=== PATIENT | male | born 1975 | race Caucasian/White ===

== ENCOUNTER 2021-04-02 07:17 | Emergency (ER) | payer OTHER ==
--- NOTE | 2021-04-02 08:04 | EDM.PDOC ---
ED HPI GENERAL MEDICAL PROBLEM - General Chief Complaint: ENT Problem Stated Complaint: THROAT HURTS VOICE WEAK Time Seen by Provider: 04/02/21 07:21 - History of Present Illness INITIAL COMMENTS - FREE TEXT/NARRATIVE: History of present illness: [] The patient started being sick 5 days ago with a scratchy throat. He got to be a sore throat the next day and then over the next few days he has developed hoarse voice pain with swallowing thick mucus in the back of his throat. Patient's symptoms have been constant and gradually crescendo. Talking and swallowing makes the pain worse. Patient's energy level somewhat diminished. Patient has young children. He went to [place] 4 days ago with a sore throat and was not tested for strep because he said he has been tested multiple times and always negative. He was not started on any antibiotics. He says Chloraseptic and warm salt water gargles do not help the pain in the back of his throat. The mucus and pain in the back of the throat causing him to have a persistent cough is very irritating keeps him from sleeping. He has no trismus. Review of systems: As per history of present illness and below otherwise all systems reviewed and negative. Past medical history: As per history of present illness and as reviewed below otherwise noncontributory. Surgical history: As per history of present illness and as reviewed below otherwise noncontributory. Social history: No reported history of drug or alcohol abuse. Family history: As per history of present illness and as reviewed below otherwise noncontributory. Physical exam: Constitutional - well developed, well-nourished and in no acute distress HEENT -pharynx is somewhat hyperemic. There is no actual discharge. Patient has no trismus. He handles his secretions well. Voice is slightly hoarse. There is no tender adenopathy in the neck. Normocephalic, no evidence of trauma - external nose and mouth normal - no mass in neck and no JVD - mucosae moist EYES - full EOM, PERRL, no icterus - no evidence of inflammation, injection, or drainage Respiratory - no respiratory distress, equal bilateral expansion, lungs clear to auscultation and no abnormal lung sounds Cardiovascular - Regular Rhythm with S1 and S2 appreciated and no murmur, gallop or rub. GI - abdomen soft without distension or organomegaly - normal bowel sounds - no guard or rebound Musculoskeletal no gross deformity of long bones or joints - no tenderness, swelling or edema Neurologic - Alert and oriented times four - CN II-XII grossly intact - motor sensory and coordination symmetrically normal Psychiatric - appropriate mood and affect with normal thought content Hematologic - No petechiae or purpura - mucosa appropriate color and sclera not pale - normal nail bed color and refill Integument - no rash or evidence of trauma - normal turgor Diagnostics: [] Therapeutics: [] Impression: [] Plan: [] Definitive disposition and diagnosis as appropriate pending reevaluation and review of above. Throat Pain Score (Numeric/FACES): 9 - Related Data Allergies Allergy/AdvReac Type Severity Reaction Status Date / Time No Known Allergies Allergy Verified 04/02/21 07:37 Home Meds: Home Meds Adalimumab [Humira(Cf) Pen] 04/02/21 [History] Amoxicillin 500 mg PO TID 10 Days #30 capsule 04/02/21 [Rx] Codeine Phosphate/Guaifenesin [Guaifen-Codeine 100-10 mg/5 ml] 5 - 10 ml PO QID PRN #120 liquid 04/02/21 [Rx] Rosuvastatin [Crestor] 5 mg PO DAILY 04/02/21 [History] Sertraline [Zoloft] 50 mg PO DAILY 04/02/21 [History] Sertraline [Zoloft] 100 mg PO DAILY 04/02/21 [History] Past Medical History Gastrointestinal History: Reports: Other (See Below) Other Gastrointestinal History: crohn's disease - Infectious Disease History Infectious Disease History: Reports: Chicken Pox - Past Surgical History GI Surgical History: Reports: Appendectomy Social & Family History - Family History Family Medical History: No Pertinent Family History ED ROS GENERAL - Review of Systems Review Of Systems: Comprehensive ROS is negative, except as noted in HPI. ED EXAM, GENERAL - Physical Exam Exam: See Below Free Text/Narrative:: My physical exam is in the HPI Course - Vital Signs Last Recorded V/S: Last Vital Signs Temp 36.1 C 04/02/21 07:38 Pulse 88 04/02/21 07:38 Resp 16 04/02/21 07:38 BP 164/81 H 04/02/21 07:38 Pulse Ox 96 04/02/21 07:38 - Orders/Labs/Meds Labs: Laboratory Tests 04/02/21 Range/Units 07:50 Group A Strep (PCR) NOT DETECTED (NOT DETECT) Departure - Departure Time of Disposition: 08:23 Disposition: Home, Self-Care 01 Condition: Good Clinical Impression: Otitis media, Pharyngitis - Discharge Information Prescriptions: Amoxicillin 500 mg PO TID 10 Days #30 capsule Codeine Phosphate/Guaifenesin [Guaifen-Codeine 100-10 mg/5 ml] 5 - 10 ml PO QID PRN #120 liquid PRN Reason: Cough Instructions: Otitis Media, Adult, [id number], Pharyngitis, [id number] Referrals: PCP,Not In Area [Primary Care Provider] - Forms: ED Department Discharge Additional Instructions: Warm salt water gargles or chicken soup with noodles will help. Cepastat or Cepacol can anesthetize your throat. [facility] [address] [place] [address] [place] [address] The following information is given to patients seen in the emergency department who are being discharged to home. This information is to outline your options for follow-up care. We provide all patients seen in our emergency department with a follow-up referral. The need for follow-up, as well as the timing and circumstances, are variable depending upon the specifics of your emergency department visit. If you don't have a primary care physician on staff, we will provide you with a referral. We always advise you to contact your personal physician following an emergency department visit to inform them of the circumstance of the visit and for follow-up with them and/or the need for any referrals to a consulting specialist. The emergency department will also refer you to a specialist when appropriate. This referral assures that you have the opportunity for follow-up care with a specialist. All of these measure are taken in an effort to provide you with optimal care, which includes your follow-up. Under all circumstances we always encourage you to contact your private physician who remains a resource for coordinating your care. When calling for follow-up care, please make the office aware that this follow-up is from your recent emergency room visit. If for any reason you are refused follow-up, please contact the [facility] Emergency Department at and asked to speak to the emergency department charge nurse. Sepsis Event Note (ED) - Evaluation Sepsis Screening Result: No Definite Risk - Focused Exam Vital Signs: Vital Signs Temp Pulse Resp BP Pulse Ox 04/02/21 07:38 36.1 C 88 16 164/81 H 96
== END 2021-04-02 08:37 | disposition home or self-care (01) ==
LOC: MW.ED 07:17
DX: J02.9 Acute pharyngitis, unspecified (principal); H66.90 Otitis media, unspecified, unspecified ear
CPT/HCPCS: 87651-QW; 99283

== ENCOUNTER 2022-06-18 04:08 | Emergency (ER) | payer OTHER ==
[2022-06-18 05:10] LABS: CARBON DIOXIDE,CO2 26.3 mmol/L (21.0-32.0); POTASSIUM,K 3.8 mmol/L (3.5-5.1)
== END 2022-06-18 06:00 | disposition home or self-care (01) ==
LOC: MW.ED 04:08
DX: R00.2 Palpitations (principal)
CPT/HCPCS: 36415; 80053; 83735; 84439; 84443; 84484; 85025; 93010; 99283; 99285

== ENCOUNTER 2023-02-07 12:24 | Emergency (ER) | payer SELFPAY | END 2023-02-07 13:41 | disposition left against medical advice (07) | LOC: MW.ED 12:24 | DX: Z53.21 Procedure and treatment not carried out due to patient leaving prior to being seen by health care provider (principal) ==

== ENCOUNTER 2023-10-05 17:41 | Emergency (ER) | payer OTHER ==
[2023-10-05] MEDS: Diphtheria,Pertussis(Acell),Tetanus Vaccine 0.5 ML Syringe IM ONE (19:05)
[2023-10-05] MEDS: Lidocaine 1% 5 ML VIAL INJECT ONE ×2 (19:05→20:03)
[2023-10-05] MEDS: ceFAZolin 1 GM Vial IM ONE (20:03)
== END 2023-10-05 20:25 | disposition home or self-care (01) ==
LOC: MW.ED 17:41
DX: S61.215A Laceration without foreign body of left ring finger without damage to nail, initial encounter (principal); E78.00 Pure hypercholesterolemia, unspecified; Z90.49 Acquired absence of other specified parts of digestive tract; Z79.899 Other long term (current) drug therapy; W20.8XXA Other cause of strike by thrown, projected or falling object, initial encounter
CPT/HCPCS: 12001; 73130; 73140; 90471; 90715; 96372; 99283; J0690; J3490

== ENCOUNTER 2024-07-02 09:09 | Emergency (ER) | payer OTHER ==
[2024-07-02] MEDS ORDERED: Sodium Chloride 0.9% 2.5 ML Syringe FLUSH PRN (09:51)
[2024-07-02] MEDS ORDERED: Sodium Chloride 0.9% 10 ML Syringe FLUSH PRN (09:51)
[2024-07-02] MEDS: Lactated Ringers 1,000 ML IV ONE ×2 (10:03)
[2024-07-02] MEDS: Ondansetron 4 MG/2 ML SDV IVPUSH ONE (10:03)
[2024-07-02 10:17] LABS: BASOPHILS ABSOLUTE AUTO 0.04 K/uL (0.00-0.20); BASOPHILS PERCENT AUTO 0.3 % (0.0-1.0); EOSINOPHILS ABSOLUTE AUTO 0.02 K/uL (0.00-0.45); EOSINOPHILS PERCENT AUTO 0.2 % (0.0-6.0); HEMATOCRIT 45.1 % (42.0-52.0); HEMOGLOBIN 15.7 g/dL (14.0-18.0); IMMATURE GRAN ABSOLUTE AUTO 0.04 K/uL (0.00-0.05); IMMATURE GRAN PERCENT AUTO 0.3 % (0.0-0.4); LYMPHOCYTES ABSOLUTE AUTO 2.15 K/uL (1.00-4.80); LYMPHOCYTES PERCENT AUTO 16.7 % (24.0-44.0); MEAN CORPUSCULAR HEMOGLOBIN 28.2 pg (28.0-32.0); MEAN CORPUSCULAR HGB CONC 34.8 g/dL (32.0-36.0); MEAN CORPUSCULAR VOLUME 81.1 fL (83.0-99.0); MEAN PLATELET VOLUME 9.2 fL (9.4-12.4); MONOCYTES ABSOLUTE AUTO 1.35 K/uL (0.00-0.80); MONOCYTES PERCENT AUTO 10.5 % (0.0-8.0); NEUTROPHILS ABSOLUTE AUTO 9.26 K/uL (1.80-7.70); PLATELET COUNT,PLT 169 K/uL (150-400); RED BLOOD CELL COUNT 5.56 M/uL (4.52-5.90); WHITE BLOOD CELL COUNT,WBC 12.86 K/uL (3.9-11.3)
[2024-07-02] MEDS: Acetaminophen 325 MG Tab PO ONE (10:26)
[2024-07-02 10:43] LABS: ACETAMINOPHEN <2.0 ug/mL; ALANINE AMINOTRANSFERASE,ALT 42 IU/L (14-63); ALBUMIN 4.2 g/dL (3.4-5.0); ALKALINE PHOSPHATASE 71 U/L (46-116); ASPARTATE AMNIOTRANSFERASE,AST 34 IU/L (15-37); BILIRUBIN TOTAL 0.6 mg/dL (0.2-1.0); BLOOD UREA NITROGEN,BUN 13 mg/dL (7.0-18.0); CALCIUM 9.1 mg/dL (8.5-10.1); CARBON DIOXIDE,CO2 26.9 mmol/L (21.0-32.0); CHLORIDE,CL 100 mmol/L (98-107); CREATININE 1.4 mg/dL (0.8-1.3); EST CRCL DRUG DOSING (CG) 75.02 mL/min; GLUCOSE RANDOM 107 mg/dL (74-106); LIPASE 43 U/L (16-77); POTASSIUM,K 4.1 mmol/L (3.5-5.1); PROTEIN TOTAL,TP 8.2 g/dL (6.4-8.2); SODIUM,NA 136 mmol/L (136-148)
[2024-07-02 10:44] LABS: ESTIMATED GFR 62 mL/min (>60)
[2024-07-02] MEDS: predniSONE 20 MG Tab PO ONE (11:59)
[2024-07-02] MEDS: Penicillin V Potassium 500 MG Tab PO STA (11:59)
== END 2024-07-02 12:47 | disposition home or self-care (01) ==
LOC: MW.ED 09:09
DX: J02.0 Streptococcal pharyngitis (principal); J04.0 Acute laryngitis; E78.00 Pure hypercholesterolemia, unspecified; Z79.899 Other long term (current) drug therapy; Z75.8 Other problems related to medical facilities and other health care
CPT/HCPCS: 36415; 80053; 80143; 83690; 85025; 87040; 87428; 87651; 96361; 96374; 99284; A9270; J2405; J7120; 99283